=== PATIENT | female | born 1985 | race Caucasian/White ===

== ENCOUNTER → 2018-03-24 | Outpatient (CLI) | payer OTHER ==
[2014-07-03 13:15] VITALS: BMI 29.8
[~2018-03-24] MED LIST: IBUP800T37 PO; PREN-127 PO
== END ==
LOC: LAB 13:20
PROVIDERS: ATTEND Obstetrics & Gynecology
DX: Z34.83 Encounter for supervision of other normal pregnancy, third trimester (principal)
CPT/HCPCS: 87081

== ENCOUNTER 2018-04-15 06:05 | Inpatient (IN) | payer OTHER ==
[~2018-04-15] VITALS: Ht 172.7 cm; Wt 93.0 kg
[2018-04-15] MEDS ORDERED: OXYTOCIN 30 UNIT/D5LR 500 ML 500 ML IV PRN ×2 (06:06)
[2018-04-15] MEDS ORDERED: ceFAZolin(*) 2GM/D5W 50ML 50 ML IVPB PRN (06:06)
[2018-04-15] MEDS ORDERED: FAMOTIDINE(*) 20MG/50ML PREMIX 50 ML IVPB PRN (06:06)
[2018-04-15] MEDS ORDERED: fentaNYL CITR 100 MCG/2 ML AMP IVP PRN (06:10)
[2018-04-15] MEDS ORDERED: METOCLOPRAMIDE 10 MG/2 ML SDV IVP PRN (06:10)
[2018-04-15] MEDS ORDERED: TERBUTALINE SULF 1 MG/ML VIAL SUBQ PRN (06:10)
[2018-04-15] MEDS ORDERED: ONDANSETRON 4 MG/2 ML VIAL IVP PRN (06:10)
[2018-04-15] MEDS ORDERED: LIDOCAINE/SOD BICARB 8.4% SYR SC PRN (06:10)
[2018-04-15] MEDS ORDERED: ACETAMINOPHEN 500 MG TAB PO PRN (06:10)
[2018-04-15] MEDS ORDERED: LIDOCAINE 1% LOCAL 300 MG/30ML INJ PRN (06:10)
[2018-04-15] MEDS: LR(*) 1000 ML BAG 1,000 ML IV PRN ×2 (06:30→08:50)
[2018-04-15 06:47] LABS: PLATELET COUNT, AUTOMATED 199 K/uL (150-450)
[2018-04-15 06:48] VITALS: BP 142/90; Ht 172.7 cm; Wt 93.0 kg
[2018-04-15] MEDS ORDERED: BUPIVACAINE 0.25% MPF INJ EPI PRN (07:55)
[2018-04-15] MEDS ORDERED: FENTANYL/ROPIVACAINE 100 ML BAG EPI PRN ×2 (07:55→12:25)
[2018-04-15] MEDS ORDERED: LIDOCAINE/PF 2% 200MG/10ML AMP 200 MG/10 ML AMPUL EPI PRN (07:55)
[2018-04-15] MEDS ORDERED: ePHEDrine 25 MG/5 ML DISP.SYR IVP PRN (07:55)
[2018-04-15] MEDS ORDERED: fentaNYL CITR 100 MCG/2 ML AMP IT PRN (07:55)
[2018-04-15] MEDS ORDERED: BUPIVACAINE 0.5% INJ 30ML VIAL EPI PRN (07:55)
[2018-04-15] MEDS ORDERED: LIDO/EPI 2% MPF 1:200,000 20ML EPI PRN (07:55)
--- NOTE | 2018-04-15 07:55 | History & Physical ---
History of Present Illness EDC per [facility]/S: April 15, 2018 Chief Complaint Induction History of Present Illness 32yo at 40wks presents for IOL. She has UCx since starting pitocin. No VB. No preeclampsia symptoms. PNC by [facility] [place] [facility]. PNC complicated by Rh negative. History Patient's Blood Type: O Negative Rubella Status: Immune Group B Strep Screen: Negative Obstetrical History: Hx 3 FT SVDs Past Medical History: PMH: None PSH: Ear tubes, adenoidectomy, left ankle fracture repair Allergies: Coded Allergies: Pertussis Vaccine,Fluid (Verified Allergy, Unknown, 07/04/14) Social History: No T/E/D. . Family History: FH: HTN (hypertension) FATHER, Onset:50's - 60 FH: hypercholesterolemia FATHER FH: melanoma MOTHER, , Age:47, Onset:40's - 50 Gestational diabetes BROTHER OR SISTER Med Rec Home Meds Reported Medications Vits W-Ca,Fe,Fa(<1MG) ( VITAMINS) 1 Each Tablet, 1 EACH PO, TAB 07/03/14 Review of Systems Constitutional: No Fever Eyes: No Vision Change Cardiovascular: No Chest Pain Respiratory: No Shortness of Breath Gastrointestinal: No Nausea, No Vomiting, No Diarrhea Genitourinary: No Dysuria Musculoskeletal: No Pain Psychiatric: No Depression, No Anxiety Exam General Exam Vital Signs Vital Signs Date Time Temp Pulse Resp B/P (MAP) Pulse Ox O2 Delivery O2 Flow Rate FiO2 04/15/18 06:48 98.2 82 18 142/90 (107) 99 Room Air General Apperance: Alert/Awake/No Acute Distress Neuro: No Gross deficits Cardiovascular: Regular Rate and Rhythm Respiratory: No Respiratory Distress Abdomen: Gravid - Non-Tender : Normal Musculoskeletal: No Weakness/Pain Extremities: No Cyanosis,Clubbing or Edema Integumentary: Skin Intact without Lesions or Rash Psychological: Alert & Oriented X3, Appropriate Mood & Affect Vaginal Discharge/Fluid?: Clear Fluid Cervical Dialation: 4 Cervical Effacement (%): 70 Cervical Consistency: Soft Cervical Position: Posterior Station: 0 Presentation: Vertex Uterine Contractions(Q min): 5 Uterine Contraction Strength: Mild UC Resting Tone: Soft Fetus Feeling Movement?: Yes FHT Category: I Medical Decision Making Data Points Result Diagram: 04/15/18 0628 Pre-Admit Course Medical Record Review: Yes VTE Prophylasis: Adult Deep Vein Thrombosis/Pulmonary: No Pharmacological Contraindicati: Pt at Low Risk for VTE Mechanical Contraindications: Pt at Low Risk for VTE Assessment and Plan Problems: (1) 40 weeks gestation of Assessment & Plan: Admit for induction. Pitocin protocol. AROM with clear fluid. Plan epidural. Anticipate . (2) Rh negative status during WILD WALKER MD April 15, 2018 07:55
[2018-04-15] MEDS ORDERED: EPIDURAL KEYS XX PRN ×2 (09:00→12:20)
--- NOTE | 2018-04-15 10:48 | Anesthesia OB Pre-Anes Eval ---
History of Present Illness Anesthesia Start Date: April 15, 2018 Anesthesia Start Time: 08:15 OB Anesthesia Diagnosis: induction - elective EDC: April 15, 2018 : 4 Para: 3 Pain Ratin Result Diagram: 04/15/18 0628 Height (Inches): 68.00 Weight (Pounds): 205 BMI Calculated: 31.17 Past Medical History Medical History: no pertinent history Surgical History: noncontributory Previous Anesthesia: general, epidural Attended Childbirth Classes?: No Hx Anesthesia Reactions: No Hx Family Anesthesia Reaction: No Home Meds Reported Medications Vits W-Ca,Fe,Fa(<1MG) ( VITAMINS) 1 Each Tablet, 1 EACH PO, TAB 07/03/14 Allergies: Coded Allergies: Pertussis Vaccine,Fluid (Verified Allergy, Unknown, 07/04/14) Anesthesia OB ROS Airway Class: l GI ROS: clear liquids, ice chips Last Solids Date: April 15, 2018 Last Solids Time: 05:30 ASA Classification: 2 Assessment and Plan Anesthesia Plan: LEB Anesthesia Stop Day: April 15, 2018 Anesthesia Stop Time: 10:45 Epidural Catheter Removal: Removed by: (Catheter will be removed later at convenient time by RN, see nursing notes.) GLADYS SALGADO CRNA April 15, 2018 09:25
--- NOTE | 2018-04-15 10:49 | Procedure Note ---
Anesthetic Placement Note Anesthesia Plan: LEB Permit for Anesthesia Signed: Yes Anesthesia Technique: Patient Sitting Anesthesia Prep: Betadine Interspace: L 4-5 Local Anesthetic: 1% Lidocaine, 25 Gauge Needle Amount Local - cc's: 4 Anesthesia Needle: 17g Touhy/Schliff Anesthesia Attempts: 2 Loss of Resistance: Normal Saline Depth of RAJINDER (cm): 6 Cerebral Spinal Fluid: No Catheter Insertion (cm): 6 Catheter Type: Eastman - Spring Wound Epidural Dressing: Tegaderm, Tape, Adhesive [place] Anesthesia Tray: Lot Number ([id number]), Expiration Date (2019-06-15), Reference Number ([id number]) Comment: First attempt at L3-4 unsuccessful. Second attempt L4-5 successful, midline approach. Anesthesia Medications: Epidural Test Dose: 1.5 Lido/Epi (1:200,000), Dose - mL (3), Time (0837), Negative (No symptoms IT or IV injection.) Epidural Loading Dose: 0.2% Ropivicaine, With Fentanyl 2mcg/ml, Dose - ml (15) , Time (0843), Other (In 5ml increments.) Epidural Infusion: 0.2% Ropivicaine, With Fentanyl 2mcg/ml, Start Time: (0850) Epidural Pump Setting: Bolus Dose - mL (4), Lockout - Minutes (20), Maintenance Rate - mL/hr (12), Maximum per Hour - mL (24) Complications: None Comment: Delivery approximately 1030, no problems. GLADYS SALGADO CRNA April 15, 2018 09:30
--- NOTE | 2018-04-15 11:08 | OB Delivery Note ---
Delivery Note Vaginal Delivery Type: Spont. Vaginal Delivery Delivery Date: April 15, 2018 Delivery Time: 10:29 Estimated Gestational Age(wks): 40 Labor Stage III (minutes): 3 Delivery Anesthesia: Epidural Sex: Female Apgars: 1 Minute (9), 5 Minute (9) Delivery Complications: Nuchal Cord Lead Performance Support Analyst in Attendence: WILD Tellez MD April 15, 2018 11:07
[2018-04-15] MEDS ORDERED: MEASLES,MUMP,RUBELLA VAC 0.5ML SUBQ ONE (11:10)
[2018-04-15] MEDS ORDERED: GLYCERIN/WITCH HAZEL LEAF 1 PK TP PRN (11:10)
[2018-04-15] MEDS ORDERED: LANOLIN OINT 7 GM TUBE TP PRN (11:10)
[2018-04-15] MEDS ORDERED: INFLUENZA VIRUS VAC 0.5 ML SYR IM ONLY ONE (11:10)
[2018-04-15] MEDS ORDERED: BENZOCAINE 20% 60 ML BTL TP PRN (11:10)
[2018-04-15] MEDS ORDERED: MAGNESIUM HYDROXIDE* 30ML UDCP PO PRN (11:10)
[2018-04-15] MEDS ORDERED: APAP/HYDROCODONE 325/5 TAB PO PRN (11:10)
[2018-04-15] MEDS ORDERED: HYDROCORTISONE 2.5% CR 30GM TB PR PRN (11:10)
[2018-04-15] MEDS ORDERED: ACETAMINOPHEN 325 MG TAB PO PRN (11:10)
[2018-04-15] MEDS ORDERED: LOR5/325 PO ×3 (11:12→16:18)
[2018-04-15] MEDS: IBUPROFEN 800 MG TAB PO SCH ×2 (12:51→20:32)
--- NOTE | 2018-04-15 14:48 | DELIVERY NOTE ---
DELIVERY DATE: April 15, 2018 SURGEON: Nara Greenwood MD ANESTHESIA: Epidural ANESTHESIOLOGIST: Edson Owens CRNA PREOPERATIVE DIAGNOSIS Intrauterine at 40 weeks, presenting for elective induction of labor. POSTOPERATIVE DIAGNOSIS 1. Intrauterine at 40 weeks, presenting for elective induction of labor. 2. Delivery of a viable female at 1029 hours weighing 3358grams (7# 5oz ) with Apgars of 9 at one minute and 9 at five minutes. PROCEDURE Spontaneous vaginal delivery. ESTIMATED BLOOD LOSS 200 mL INDICATIONS FOR PROCEDURE This patient is a 32-year-old 4 para 3 who presented at 40 weeks gestation for an elective induction of labor. At the time of presentation she was 3, 50 and -2. Pitocin was started per protocol and advanced slowly. She experienced an amniotomy at 0745 hours, at which time she was 4, 70 and 0 station. She had an epidural placed for anesthesia and then was noted to be complete at 1018 hours. She was then prepared for delivery. PROCEDURE The patient was properly identified and placed in the dorsal lithotomy position. She was prepped and draped in the usual fashion for a vaginal delivery. She was asked to push and within a single contraction was able to bring the infant's vertex to the perineum in the HARRY position. The head then delivered easily. A nuchal was noted and delivered on the head. The anterior shoulder elevated easily followed by the posterior shoulder. The remainder of the was easily delivered. The infant had a spontaneous cry and spontaneous movement of all four extremities. The infant was then dried, stimulated, and the oropharynx and nasopharynx were bulb suctioned. The was then passed onto the mother's abdomen while nursing personnel was in attendance. The cord was clamped times two and cut by the father of the baby, and cord blood was obtained and passed off the table. Pitocin had been started with IV to help firm the uterus. The placenta subsequently delivered spontaneously intact and was passed off the table. Examination of the cervix, vaginal vault and perineum revealed no lacerations. The patient tolerated this procedure well and recovered in Labor and Delivery with her . All sponge and needle counts were correct at the end of this procedure. [facility]
[2018-04-15 16:00] VITALS: BP 105/72
[2018-04-15] MEDS ORDERED: IBUP800T37 PO (16:17)
[2018-04-15 20:15] VITALS: BP 116/78
[2018-04-15] MEDS: DOCUSATE CALCIUM 240 MG CAP PO SCH (20:32)
[2018-04-16] MEDS: IBUPROFEN 800 MG TAB PO SCH ×2 (04:19→12:36)
[2018-04-16 07:30] VITALS: BP 116/82
--- NOTE | 2018-04-16 08:00 | OB/GYN Progress Note ---
OB Subjective Progress Notes Subjective Doing well. Pain controlled with oral medications. Tolerating regular diet. Ambulating. Voiding. Normal lochia. No preeclampsia symptoms. OB Objective Physical Exam Vital Signs Date Time Temp Pulse Resp B/P (MAP) Pulse Ox O2 Delivery O2 Flow Rate FiO2 04/15/18 20:15 98.2 79 18 116/78 (91) Room Air 04/15/18 16:00 95 General Appearance: Alert/Awake/No Acute Distress Neurological: No Gross deficits Cardiovascular: Normal Rhythm & Peripheral Pulses, Regular Rate and Rhythm Respiratory: No Respiratory Distress, Clear to Auscultation Abdomen: Soft, Non-Tender, Non-Distended, Fundus Firm Extremities: No Cyanosis,Clubbing or Edema Integumentary: Skin Intact without Lesions or Rash Psychological: Alert & Oriented X3, Appropriate Mood & Affect Result Diagram: 04/15/18 0628 Assessment and Plan Problems: (1) care and examination immediately after delivery Assessment & Plan: PPD#1 s/p . Meeting milestones. Desires discharge to home today. Discussed routine expectations. Questions answered. Follow up in clinic in 6wks for check. (2) Rh negative status during Assessment & Plan: Rhophylac today. WILD WALKER MD Apr 16, 2018 08:00
--- NOTE | 2018-04-16 08:01 | OB/GYN Discharge Summary ---
Discharge Summary Reason for Hosp/Final Diag: (1) care and examination immediately after delivery Hospital Course & Plan: PPD#1 s/p . Meeting milestones. Desires discharge to home today. Discussed routine expectations. Questions answered. Follow up in clinic in 6wks for check. (2) Rh negative status during Hospital Course & Plan: Rhophylac today. [place] Vital Signs Vital Signs Date Time Temp Pulse Resp B/P (MAP) Pulse Ox O2 Delivery O2 Flow Rate FiO2 04/15/18 20:15 98.2 79 18 116/78 (91) Room Air 04/15/18 16:00 95 Weight (Pounds): 205 Result Diagram: 04/15/1828 Condition: Improved Discharge: Home, Self Retirement Meds Active Scripts Hydrocodone Bit/Acetaminophen (HYDROCODON-ACETAMINOPHEN 5-325) 1 Each Tablet, 1 EACH PO Q4-6H Y for pain, #20 TAB 0 Refills Prov:WILD GREENWOOD MD 04/15/18 Ibuprofen (IBUPROFEN) 800 Mg Tablet, 1 TAB PO Q8H Y for pain for 30 Days, #30 TAB 0 Refills TAKE WITH FOOD EVERY 8 HOURS Prov:WILD GREENWOOD MD 04/15/18 Reported Medications Vits W-Ca,Fe,Fa(<1MG) ( VITAMINS) 1 Each Tablet, 1 EACH PO, TAB 07/03/14 Discontinued Scripts Hydrocodone Bit/Acetaminophen (HYDROCODON-ACETAMINOPHEN 5-325) 1 Each Tablet, 1 EACH PO Q4-6H Y for pain, #20 TAB 0 Refills Prov:WILD GREENWOOD MD 04/15/18 Follow up Referrals: [facility] - [place] 6 Weeks [place] [facility] with Wild Greenwood Md Discharge Diet: As Tolerates Discharge Activity: Pelvic Rest WILD GREENWOOD MD Apr 16, 2018 08:01
[2018-04-16] MEDS: DOCUSATE CALCIUM 240 MG CAP PO SCH (09:36)
--- NOTE | 2018-04-16 10:15 | Anesthesia Post Eval Note ---
Anesthesia Post Eval Note Stable, afebrile. Pt able to participate in Eval: Yes Cardiovascular Status: Satisfactory Respiratory Status: Satisfactory Pain Managment: Satisfactory PO Nausea/Vomiting: Satisfactory Temperature Management: Satisfactory Mental Status: Satisfactory, Alert, Oriented X3 Post-Op Hydration Status: Satisfactory, Tolerating PO Well, Voiding w/o Difficulty Anesthesia Type: LEB Anesthesia Tolerance: Ambulatory without symptoms PDPH. Only complaint discomfort upper Right side ( mild), otherwise no complications. GLADYS SALGADO TECHNICAL TRAINING COORDINATOR Apr 16, 2018 10:15
[2018-04-16 11:00] VITALS: BP 125/91
== END 2018-04-16 15:40 | disposition home or self-care (01) | DRG 775 ==
LOC: OB 06:05 → PED 18:39
PROVIDERS: ADMIT Obstetrics & Gynecology; ATTEND Obstetrics & Gynecology
PROC: 10E0XZZ Delivery of Products of Conception, External Approach (ICD-10-PCS; principal; 2018-04-15)
PROC: 10907ZC Drainage of Amniotic Fluid, Therapeutic from Products of Conception, Via Natural or Artificial Opening (ICD-10-PCS; 2018-04-15)
PROC: 3E0334Z Introduction of Serum, Toxoid and Vaccine into Peripheral Vein, Percutaneous Approach (ICD-10-PCS; 2018-04-15)
DX: O36.0130 Maternal care for anti-D [Rh] antibodies, third trimester, not applicable or unspecified (principal); O69.81X0 Labor and delivery complicated by cord around neck, without compression, not applicable or unspecified; Z37.0 Single live birth; Z3A.40 40 weeks gestation of pregnancy; Z88.7 Allergy status to serum and vaccine
CPT/HCPCS: 36415; 85025; 85461; 86850; 86900; 86901; J2590; J2791; J7120